=== PATIENT | male | born 1945 | race Caucasian/White ===

== ENCOUNTER 2016-05-30 09:39 | Outpatient (CLI) | payer MEDICARE, OTHER | END 2016-05-30 09:40 | disposition home or self-care (01) | DX: R07.9 Chest pain, unspecified (principal) ==

== ENCOUNTER 2016-06-16 09:14 | Outpatient (CLI) | payer MEDICARE, OTHER | END 2016-06-16 09:15 | disposition home or self-care (01) | DX: R07.9 Chest pain, unspecified (principal); M47.812 Spondylosis without myelopathy or radiculopathy, cervical region; M47.816 Spondylosis without myelopathy or radiculopathy, lumbar region; M19.012 Primary osteoarthritis, left shoulder | CPT/HCPCS: 78306; A9503 ==

== ENCOUNTER 2016-07-03 16:59 | Outpatient (CLI) | payer MEDICARE, OTHER | END 2016-07-03 17:00 | disposition home or self-care (01) | DX: R07.9 Chest pain, unspecified (principal) ==

== ENCOUNTER 2017-02-06 12:23 | Outpatient (CLI) | payer MEDICARE, OTHER | END 2017-02-06 12:24 | disposition home or self-care (01) | LOC: DI 12:23 | PROVIDERS: ATTEND Internal Medicine Cardiovascular Disease | DX: I50.9 Heart failure, unspecified (principal); I51.7 Cardiomegaly; I34.0 Nonrheumatic mitral (valve) insufficiency | CPT/HCPCS: 93306 ==

== ENCOUNTER 2017-04-07 12:41 | Outpatient (CLI) | payer MEDICARE, OTHER ==
--- NOTE | 2017-04-07 18:26 | Ultrasound Report ---
RENAL ULTRASOUND: 04/07/2017 CLINICAL INDICATION: Acute kidney failure. COMPARISON: 03/19/2015 TECHNIQUE: Real-time scanning was performed with passenger service representative static images obtained. The right kidney measures 11.6 x 4.8 x 4.6 cm. A 1.4 cm cortical cyst is noted arising from the uppe r pole. The left kidney is again atrophic, measuring 7.2 x 4.7 x 4.6 cm. No focal solid renal lesio n, perinephric collection, or hydronephrosis is seen. Prevoid, the bladder measures 7.3 x 7.3 x 6.6 cm, yielding a prevoid volume of 184 mL. Bilateral ure teral jets are visualized. No significant postvoid residual is seen. IMPRESSION: STABLE ATROPHIC LEFT KIDNEY. SMALL RIGHT CORTICAL CYST. NO HYDRONEPHROSIS OR POSTVOID RESIDUAL. JOB #: [id number] EXT JOB #:[id number]
== END 2017-04-07 12:42 | disposition home or self-care (01) ==
LOC: DI 12:41
PROVIDERS: ATTEND Internal Medicine Nephrology
DX: N17.9 Acute kidney failure, unspecified (principal); Q61.01 Congenital single renal cyst
CPT/HCPCS: 76770

== ENCOUNTER 2017-04-23 10:42 | Outpatient (CLI) | payer MEDICARE, OTHER ==
[2017-04-23] MEDS ORDERED: REGADENOSON 0.4 MG/5 ML SYRINGE IVP ONE ×2 (11:02→15:50)
--- NOTE | 2017-04-23 18:34 | CARDIAC PROCEDURE NOTE ---
DATE OF SERVICE: 04/23/2017 PRIMARY CARE PHYSICIAN: Dr. Hammer. REFRACTORY MIXER: Alma Becker MD PROCEDURE: Treadmill MPS converted to pharmaceutical stress test. PROCEDURE SYMPTOMS: Heart block. PREVIOUS CARDIAC PROCEDURES: Include ETT and cardiac angiogram. CURRENT SYMPTOMATOLOGY: None. CLINICAL HISTORY: A 72-year-old male with known coronary artery disease. INITIAL RESTING VITAL SIGNS: Blood pressure 114/56, heart rate 78, height 71 inches, weight 230 pounds. PROCEDURE AND FINDINGS: The patient's identity and date verified. Consent signed. The patient initially performed treadmill exercise, using a Mckinley protocol, completing 1 minute and 40 seconds when exercise was terminated due to leg claudication pain and unsteadiness. He was then given Lexiscan 0.4 mg/5 mL over 10 seconds, followed by Cardiolite tracer. He was helped to bed and was breathing heavily. He denied any symptoms related to the Lexiscan injection. He had no chest pain. Maximal blood pressure was 154/70 with a maximal heart rate of 106 beats per minute. The resting ECG demonstrated wandering atrial pacemaker rhythm with a first degree AV block abnormality. Maximum ST segment depression was 0.5 mm to 1.0 mm and upsloping or horizontal. There was a rare PA -C, occasional unifocal PVCs, and several sinus pauses. The longest sinus pause was 1.48 seconds. FINAL IMPRESSION: 1. Nondiagnostic stress electrocardiogram for ischemia by electrocardiographic criteria. 2. Negative stress test clinically for angina. 3. WAP rhythm with sinus pauses, to a maximum of 1.48 seconds. 4. Await myocardial perfusion scan results. JOB #: [id number] EXT JOB #:[id number] MTDD
[2017-04-23 20:36] VITALS: BP 112/82
--- NOTE | 2017-04-24 09:27 | Nuclear Medicine Report ---
EXAM: SINGLE-ISOTOPE PHARMACOLOGICAL STRESS TEST WITH LEXISCAN. SINGLE-ISOTOPE AND SAME-DAY REST/STRESS SUNSHINE CARDIAL PERFUSION SCANS WITH TOMOGRAPHIC IMAGING, QUANTITATIVE ANALYSIS, WALL MOTION ANALYSIS AND ABBY CULATION OF EJECTION FRACTION. EXAM DATE: 04/23/2017 CLINICAL HISTORY: Heart block COMPARISON: None. TECHNIQUE: Patient was unable to safely complete treadmill stress test and exam was therefore converted to pharm acologic stress. Following the intravenous administration of 10.2 mCi of Tc-99m sestamibi, a rest myocardial perfusion scan was done with tomography. Motion correction was applied when appropriate. After a delay of several hours on the same day, a pharmacological stress was performed with the infus ion of 0.4 mg of Lexiscan. According to protocol, 43.1 mCi of Tc-99m sestamibi was injected for stres s myocardial perfusion scan. Stress myocardial perfusion was done with tomography without attenuation correction. Motion correction was applied when appropriate. Gated tomographic images were obtained for wall motion analysis and computation of left ventricular ejection fraction. FINDINGS: Perfusion images: Left ventricular chamber size is normal at rest and unchanged at stress. There is a large size severe perfusion deficit involving the entire inferior and inferolateral wall e xtending to the apex. No convincing reversible perfusion deficits. Gated images: There is lateral, inferior wall, and apical hypokinesis. The left ventricular ejection fraction is estimated at 33% (normal > 50%). IMPRESSION: 1. Large, severe fixed perfusion inferior/inferolateral wall perfusion deficit, compatible with infar ct. 2. No convincing reversible perfusion deficits to indicate stress-induced ischemia. 3. Left ventricular ejection fraction of 33% (normal > 50%). [facility] Referring Provider Line: [phone] SITE ID: [id number]
== END 2017-04-23 10:43 | disposition home or self-care (01) ==
LOC: DI 10:42
PROVIDERS: ATTEND Internal Medicine Cardiovascular Disease
DX: I45.9 Conduction disorder, unspecified (principal); I25.10 Atherosclerotic heart disease of native coronary artery without angina pectoris
CPT/HCPCS: 78452; 93017; A9500; J2785

== ENCOUNTER 2017-07-03 11:59 | Outpatient (CLI) | payer MEDICARE, OTHER ==
[2017-07-03 12:31] LABS: CALCIUM 9.3 mg/dL (8.5-10.3)
== END 2017-07-03 12:00 | disposition home or self-care (01) ==
LOC: LAB 11:59
PROVIDERS: ATTEND Internal Medicine Nephrology
DX: N05.9 Unspecified nephritic syndrome with unspecified morphologic changes (principal); I50.32 Chronic diastolic (congestive) heart failure
CPT/HCPCS: 36415; 80048; 83880

== ENCOUNTER 2017-07-13 09:08 | Outpatient (CLI) | payer MEDICARE, OTHER ==
[2017-07-13 09:57] LABS: ALBUMIN 3.6 g/dL (3.2-5.5); ALBUMIN/GLOBULIN RATIO 1.1 (1.0-2.2); ALKALINE PHOSPHATASE 83 IU/L (42-121); ALT ALANINE AMINOTRANSFERASE 11 IU/L (10-60); AST ASPARTATE AMINOTRANSFERASE 14 IU/L (10-42); BILIRUBIN,TOTAL 0.5 mg/dL (0.2-1.0); BUN - BLOOD UREA NITROGEN 34 mg/dL (6-20); CALCIUM 9.2 mg/dL (8.5-10.3); CARBON DIOXIDE - CO2 23 mmol/L (21-32); CHLORIDE 106 mmol/L (101-111); CHOL/HDL RATIO 3.6 (<5.0); CHOLESTEROL 111 mg/dL; CREATININE 2.9 mg/dL (0.6-1.2); GFR - MDRD 22 (>89); GLUCOSE 99 mg/dL (70-100); HDL CHOLESTEROL 31 mg/dL; LDL CHOLESTEROL,CALCULATED 59 mg/dL; LDL/HDL RATIO 1.9 (<3.6); SODIUM 138 mmol/L (135-145); VLDL CHOLESTEROL 21 mg/dL
== END 2017-07-13 09:09 | disposition home or self-care (01) ==
LOC: LAB 09:08
PROVIDERS: ATTEND Internal Medicine Cardiovascular Disease
DX: Z79.899 Other long term (current) drug therapy (principal)
CPT/HCPCS: 36415; 80053; 80061; 83721

== ENCOUNTER 2017-09-17 12:45 | Outpatient (CLI) | payer MEDICARE, OTHER ==
[2017-09-17 13:13] LABS: HGB - HEMOGLOBIN 9.3 g/dL (14.0-18.0); MEAN CORPUSCULAR HEMOGLOBIN 32.9 pg (27.0-31.0); MEAN CORPUSCULAR HGB CONC 33.3 g/dL (32.0-36.0); MEAN CORPUSCULAR VOLUME 98.7 fL (80.0-94.0); MEAN PLATELET VOLUME 7.6 fL (7.4-11.4); RED BLOOD COUNT 2.83 10^6/uL (4.70-6.10); WHITE BLOOD COUNT 9.3 x10^3/uL (4.8-10.8)
[2017-09-17 13:32] LABS: CALCIUM 8.9 mg/dL (8.5-10.3); CREATININE 5.5 mg/dL (0.6-1.2); PHOSPHORUS 5.8 mg/dL (2.5-4.6)
== END 2017-09-17 12:46 | disposition home or self-care (01) ==
LOC: LAB 12:45
PROVIDERS: ATTEND Internal Medicine Nephrology
DX: N05.9 Unspecified nephritic syndrome with unspecified morphologic changes (principal); D70.9 Neutropenia, unspecified; D63.1 Anemia in chronic kidney disease; E83.30 Disorder of phosphorus metabolism, unspecified; N25.81 Secondary hyperparathyroidism of renal origin
CPT/HCPCS: 36415; 80048; 83970; 84100

== ENCOUNTER 2017-11-24 16:52 | Outpatient (CLI) | payer MEDICARE, OTHER ==
--- NOTE | 2017-11-25 09:08 | XRAY Report ---
Procedure Date: 11/24/2017 Accession Number: [id number] / [id number] Procedure: XR - Chest 2 View X-Ray CPT Code: 99180 FULL RESULT: EXAM: Chest 2 View X-Ray DATE: 11/24/2017 5:03 PM CLINICAL HISTORY: CP COMPARISON: 05/30/2016 TECHNIQUE: 2 views. FINDINGS: Lungs/Pleura: No focal opacities evident. No pneumothorax or pleural effusion. Normal volumes. Mediastinum: Heart and mediastinal contours are unremarkable. Other: Right jugular dialysis catheter terminates in the superior vena cava. IMPRESSION: Normal 2-view chest radiography. [facility]
== END 2017-11-24 16:53 | disposition home or self-care (01) ==
LOC: DI 16:52
PROVIDERS: ATTEND Internal Medicine
DX: R07.9 Chest pain, unspecified (principal)
CPT/HCPCS: 71046

== ENCOUNTER 2018-02-12 08:00 | Outpatient (CLI) | payer MEDICARE, OTHER | END 2018-02-12 08:01 | disposition home or self-care (01) | LOC: RT 08:00 | PROVIDERS: ATTEND Internal Medicine Cardiovascular Disease | DX: I44.1 Atrioventricular block, second degree (principal) | CPT/HCPCS: 93005 ==

== ENCOUNTER 2018-04-19 07:36 | Outpatient (CLI) | payer MEDICARE, OTHER ==
[2018-04-19 08:10] LABS: INR 1.1 (0.8-1.2); PT - PROTHROMBIN TIME 12.2 secs (9.9-12.6)
== END 2018-04-19 07:37 | disposition home or self-care (01) ==
LOC: LAB 07:36
PROVIDERS: ATTEND Specialist
DX: I48.91 Unspecified atrial fibrillation (principal)
CPT/HCPCS: 36415; 85610

== ENCOUNTER 2018-04-23 07:21 | Outpatient (CLI) | payer MEDICARE, OTHER | END 2018-04-23 07:22 | disposition home or self-care (01) | LOC: LAB 07:21 | PROVIDERS: ATTEND Specialist | DX: I48.91 Unspecified atrial fibrillation (principal) | CPT/HCPCS: 85610 ==

== ENCOUNTER 2018-04-26 06:51 | Outpatient (CLI) | payer MEDICARE, OTHER | END 2018-04-26 06:52 | disposition home or self-care (01) | LOC: LAB 06:51 | PROVIDERS: ATTEND Specialist | DX: I48.91 Unspecified atrial fibrillation (principal) | CPT/HCPCS: 85610 ==

== ENCOUNTER 2018-04-30 06:44 | Outpatient (CLI) | payer MEDICARE, OTHER | END 2018-04-30 06:45 | disposition home or self-care (01) | LOC: LAB 06:44 | PROVIDERS: ATTEND Specialist | DX: I48.91 Unspecified atrial fibrillation (principal) | CPT/HCPCS: 85610 ==

== ENCOUNTER 2018-05-03 06:51 | Outpatient (CLI) | payer MEDICARE, OTHER | END 2018-05-03 06:52 | disposition home or self-care (01) | LOC: LAB 06:51 | PROVIDERS: ATTEND Specialist | DX: I48.91 Unspecified atrial fibrillation (principal) | CPT/HCPCS: 85610 ==

== ENCOUNTER 2018-05-05 06:52 | Outpatient (CLI) | payer MEDICARE, OTHER | END 2018-05-05 06:53 | disposition home or self-care (01) | LOC: LAB 06:52 | PROVIDERS: ATTEND Specialist | DX: I48.91 Unspecified atrial fibrillation (principal) | CPT/HCPCS: 85610 ==

== ENCOUNTER 2018-05-06 08:12 | Outpatient (CLI) | payer MEDICARE, OTHER | END 2018-05-06 08:13 | disposition short-term general hospital (02) | LOC: EMS 08:12 | PROVIDERS: ATTEND Surgery | DX: R10.11 Right upper quadrant pain (principal); R06.02 Shortness of breath | CPT/HCPCS: A0425; A0427 ==

== ENCOUNTER 2018-05-11 07:04 | Outpatient (CLI) | payer MEDICARE, OTHER | END 2018-05-11 07:05 | disposition home or self-care (01) | LOC: LAB 07:04 | PROVIDERS: ATTEND Specialist | DX: I48.91 Unspecified atrial fibrillation (principal) | CPT/HCPCS: 85610 ==

== ENCOUNTER 2018-05-12 07:14 | Outpatient (CLI) | payer MEDICARE, OTHER | END 2018-05-12 07:15 | disposition home or self-care (01) | LOC: LAB 07:14 | PROVIDERS: ATTEND Specialist | DX: I48.91 Unspecified atrial fibrillation (principal) | CPT/HCPCS: 85610 ==

== ENCOUNTER 2018-05-21 06:42 | Outpatient (CLI) | payer MEDICARE, OTHER | END 2018-05-21 06:43 | disposition home or self-care (01) | LOC: LAB 06:42 | PROVIDERS: ATTEND Specialist | DX: I48.91 Unspecified atrial fibrillation (principal) | CPT/HCPCS: 85610 ==

== ENCOUNTER 2018-05-24 07:13 | Outpatient (CLI) | payer MEDICARE, OTHER | END 2018-05-24 07:14 | disposition home or self-care (01) | LOC: LAB 07:13 | PROVIDERS: ATTEND Specialist | DX: I48.91 Unspecified atrial fibrillation (principal) | CPT/HCPCS: 85610 ==

== ENCOUNTER 2018-05-28 07:11 | Outpatient (CLI) | payer MEDICARE, OTHER ==
[2018-05-28 07:50] LABS: BASOPHILS # (AUTO) 0.1 10^3/uL (0.0-0.1); BASOPHILS % (AUTO) 0.8 %; EOSINOPHILS # (AUTO) 0.2 10^3/uL (0.0-0.7); EOSINOPHILS % (AUTO) 2.1 %; LYMPHOCYTES % (AUTO) 20.1 %; MEAN CORPUSCULAR HEMOGLOBIN 35.4 pg (27.0-31.0); MEAN CORPUSCULAR HGB CONC 34.9 g/dL (32.0-36.0); MEAN CORPUSCULAR VOLUME 101.5 fL (80.0-94.0); MEAN PLATELET VOLUME 7.4 fL (7.4-11.4); MONOCYTES # (AUTO) 0.8 10^3/uL (0.0-1.0); MONOCYTES % (AUTO) 8.2 %; NEUTROPHILS # (AUTO) 6.7 10^3/uL (1.5-6.6); NEUTROPHILS % (AUTO) 68.8 %; PLT - PLATELET COUNT 220 10^3/uL (130-450); RED CELL DISTRIBUTION WIDTH 13.6 % (12.0-15.0); WHITE BLOOD COUNT 9.7 x10^3/uL (4.8-10.8)
[2018-05-28 08:04] LABS: CALCIUM 9.4 mg/dL (8.5-10.3); CREATININE 4.8 mg/dL (0.6-1.2); MAGNESIUM 2.5 mg/dL (1.7-2.8)
== END 2018-05-28 07:12 | disposition home or self-care (01) ==
LOC: LAB 07:11
PROVIDERS: ATTEND Specialist
DX: R25.2 Cramp and spasm (principal); I48.91 Unspecified atrial fibrillation
CPT/HCPCS: 36415; 80048; 83735; 84443; 85025; 85610

== ENCOUNTER 2018-05-31 07:09 | Outpatient (CLI) | payer MEDICARE, OTHER | END 2018-05-31 07:10 | disposition home or self-care (01) | LOC: LAB 07:09 | PROVIDERS: ATTEND Specialist | DX: I48.91 Unspecified atrial fibrillation (principal) | CPT/HCPCS: 85610 ==

== ENCOUNTER 2018-06-04 07:00 | Outpatient (CLI) | payer MEDICARE, OTHER | END 2018-06-04 07:01 | disposition home or self-care (01) | LOC: LAB 07:00 | PROVIDERS: ATTEND Specialist | DX: I48.91 Unspecified atrial fibrillation (principal) | CPT/HCPCS: 85610 ==

== ENCOUNTER 2018-06-11 06:55 | Outpatient (CLI) | payer MEDICARE, OTHER | END 2018-06-11 06:56 | disposition home or self-care (01) | LOC: LAB 06:55 | PROVIDERS: ATTEND Specialist | DX: I48.91 Unspecified atrial fibrillation (principal) | CPT/HCPCS: 85610 ==

== ENCOUNTER 2018-06-22 07:20 | Outpatient (CLI) | payer MEDICARE, OTHER | END 2018-06-22 07:21 | disposition home or self-care (01) | LOC: LAB 07:20 | PROVIDERS: ATTEND Specialist | DX: I48.91 Unspecified atrial fibrillation (principal) | CPT/HCPCS: 36415; 85610 ==

== ENCOUNTER 2018-07-01 13:04 | Outpatient (CLI) | payer MEDICARE, OTHER ==
[2018-07-01 13:27] LABS: BASOPHILS # (AUTO) 0.1 10^3/uL (0.0-0.1); BASOPHILS % (AUTO) 1.1 %; EOSINOPHILS # (AUTO) 0.2 10^3/uL (0.0-0.7); EOSINOPHILS % (AUTO) 1.9 %; HGB - HEMOGLOBIN 12.2 g/dL (14.0-18.0); LYMPHOCYTES # (AUTO) 1.9 10^3/uL (1.5-3.5); LYMPHOCYTES % (AUTO) 16.4 %; MEAN CORPUSCULAR HEMOGLOBIN 34.3 pg (27.0-31.0); MEAN CORPUSCULAR HGB CONC 34.4 g/dL (32.0-36.0); MEAN CORPUSCULAR VOLUME 99.7 fL (80.0-94.0); MEAN PLATELET VOLUME 7.6 fL (7.4-11.4); MONOCYTES # (AUTO) 0.8 10^3/uL (0.0-1.0); MONOCYTES % (AUTO) 7.1 %; NEUTROPHILS # (AUTO) 8.4 10^3/uL (1.5-6.6); NEUTROPHILS % (AUTO) 73.5 %; PLT - PLATELET COUNT 207 10^3/uL (130-450); RED BLOOD COUNT 3.56 10^6/uL (4.70-6.10); RED CELL DISTRIBUTION WIDTH 13.4 % (12.0-15.0); WHITE BLOOD COUNT 11.5 x10^3/uL (4.8-10.8)
[2018-07-01 13:38] LABS: INR 1.8 (0.8-1.2); PT - PROTHROMBIN TIME 20.3 secs (9.9-12.6)
[2018-07-01 13:43] LABS: CALCIUM 9.4 mg/dL (8.5-10.3); CREATININE 4.9 mg/dL (0.6-1.2)
== END 2018-07-01 13:05 | disposition home or self-care (01) ==
LOC: LAB 13:04
PROVIDERS: ATTEND Specialist
DX: I48.91 Unspecified atrial fibrillation (principal)
CPT/HCPCS: 36415; 80048; 85025; 85610; 86850; 86900; 86901

== ENCOUNTER 2018-07-08 07:31 | Outpatient (CLI) | payer MEDICARE, OTHER | END 2018-07-08 07:32 | disposition home or self-care (01) | LOC: LAB 07:31 | PROVIDERS: ATTEND Specialist | DX: I48.91 Unspecified atrial fibrillation (principal) | CPT/HCPCS: 85610 ==

== ENCOUNTER 2018-07-10 08:00 | Outpatient (CLI) | payer MEDICARE, OTHER | END 2018-07-10 08:01 | disposition home or self-care (01) | LOC: LAB 08:00 | PROVIDERS: ATTEND Specialist | DX: I48.91 Unspecified atrial fibrillation (principal) | CPT/HCPCS: 85610 ==

== ENCOUNTER 2018-07-20 07:13 | Outpatient (CLI) | payer MEDICARE, OTHER | END 2018-07-20 07:14 | disposition home or self-care (01) | LOC: LAB 07:13 | PROVIDERS: ATTEND Specialist | DX: I48.91 Unspecified atrial fibrillation (principal) | CPT/HCPCS: 85610 ==

== ENCOUNTER 2018-07-27 07:00 | Outpatient (CLI) | payer MEDICARE, OTHER | END 2018-07-27 07:01 | disposition home or self-care (01) | LOC: LAB 07:00 | PROVIDERS: ATTEND Specialist | DX: I48.91 Unspecified atrial fibrillation (principal) | CPT/HCPCS: 85610 ==

== ENCOUNTER 2018-08-12 07:17 | Outpatient (CLI) | payer MEDICARE, OTHER | END 2018-08-12 07:18 | disposition home or self-care (01) | LOC: LAB 07:17 | PROVIDERS: ATTEND Specialist | DX: I48.91 Unspecified atrial fibrillation (principal) | CPT/HCPCS: 85610 ==

== ENCOUNTER 2018-10-13 12:20 | Emergency (ER) | payer MEDICARE, OTHER ==
[2018-10-13 12:54] LABS: BASOPHILS # (AUTO) 0.1 10^3/uL (0.0-0.1); BASOPHILS % (AUTO) 0.9 %; EOSINOPHILS # (AUTO) 0.1 10^3/uL (0.0-0.7); HGB - HEMOGLOBIN 11.4 g/dL (14.0-18.0); LYMPHOCYTES % (AUTO) 10.8 %; MEAN CORPUSCULAR HEMOGLOBIN 33.8 pg (27.0-31.0); MEAN CORPUSCULAR HGB CONC 33.7 g/dL (32.0-36.0); MEAN CORPUSCULAR VOLUME 100.5 fL (80.0-94.0); MEAN PLATELET VOLUME 8.7 fL (7.4-11.4); MONOCYTES # (AUTO) 0.6 10^3/uL (0.0-1.0); MONOCYTES % (AUTO) 6.2 %; NEUTROPHILS # (AUTO) 7.2 10^3/uL (1.5-6.6); NEUTROPHILS % (AUTO) 81.1 %; PLT - PLATELET COUNT 125 10^3/uL (130-450); RED BLOOD COUNT 3.36 10^6/uL (4.70-6.10); RED CELL DISTRIBUTION WIDTH 13.8 % (12.0-15.0); WHITE BLOOD COUNT 8.9 x10^3/uL (4.8-10.8)
[2018-10-13 13:08] LABS: ALBUMIN 4.2 g/dL (3.2-5.5); ALBUMIN/GLOBULIN RATIO 1.2 (1.0-2.2); ALKALINE PHOSPHATASE 87 IU/L (42-121); ALT ALANINE AMINOTRANSFERASE < 10 IU/L (10-60); AST ASPARTATE AMINOTRANSFERASE 20 IU/L (10-42); BILIRUBIN,TOTAL 0.8 mg/dL (0.2-1.0); BUN - BLOOD UREA NITROGEN 11 mg/dL (6-20); CALCIUM 9.1 mg/dL (8.5-10.3); CARBON DIOXIDE - CO2 28 mmol/L (21-32); CHLORIDE 102 mmol/L (101-111); CREATININE 2.8 mg/dL (0.6-1.2); GFR - MDRD 22 (>89); GLUCOSE 123 mg/dL (70-100); LIPASE 25 U/L (22-51); SODIUM 140 mmol/L (135-145); TOTAL PROTEIN 7.7 g/dL (6.7-8.2)
--- NOTE | 2018-10-13 13:28 | ED Physician Documentation ---
PD HPI URI - Stated complaint Stated Complaint: SOA - Chief complaint Chief Complaint: Resp - History obtained from History obtained from: Patient - History of Present Illness Timing - onset: How many days ago (few) Timing duration: Days (4) Timing details: Gradual onset, Still present Associated symptoms: Nasal congestion, Productive cough, Dyspnea (using his home MDIs more with temporary relief.). No: Fever, Chills, Swollen nodes, Hemoptysis, Chest pain Contributing factors: Immunocompromised (renal fialure and on dialysis, had dialysis this morning without problems. Nurses there encouraged him to get checked with PMD or ER.), COPD / asthma. No: Sick contact Improves by: MDI/nebulizer (using his MDIs more at home) Worsened by: Activity Similar symptoms before: Diagnosis (COPD exac with bronchitis or infections in the past) Recently seen: Clinic (had dialysis today without problems and says he was down to his dry weight.) Review of Systems Constitutional: reports: Myalgias, Fatigue. denies: Fever Nose: reports: Congestion Cardiac: denies: Chest pain / pressure, Palpitations Respiratory: reports: Dyspnea, Cough, Wheezing GI: denies: Nausea, Vomiting, Diarrhea, Bloody / black stool Skin: denies: Rash, Lesions Neurologic: reports: Generalized weakness. denies: Focal weakness, Numbness, Altered mental status PD PAST MEDICAL HISTORY - Past Medical History Cardiovascular: Congestive heart failure, Hypertension, High cholesterol, Coronary artery disease, [place] Respiratory: COPD, Shortness of breath Endocrine/Autoimmune: Type 2 diabetes GI: GERD, Ulcers : Benign prostate hypertrophy, Renal insuffiency, Other HEENT: None Psych: Depression Musculoskeletal: Osteoarthritis, Rheumatoid arthritis Derm: Other drug resistant infections - Past Surgical History General: EGD, Cholecystectomy, Bowel surgery, Colonoscopy Derm: Skin cancer surgery - Present Medications Home Medications: Ambulatory Orders Medication Instructions Recorded Confirmed Carvedilol [Coreg] 3.125 mg PO BID 10/25/12 08/21/16 Cholecalciferol (Vitamin D3) 1,000 unit PO DAILY 10/25/12 08/21/16 [Vitamin D] Clopidogrel [Plavix] 75 mg PO DAILY 10/25/12 08/21/16 Cyanocobalamin/Folic Acid [Vitamin 1 each PO DAILY 10/25/12 08/21/16 J52-Coodx Acid Tablet] Cyclobenzaprine [Flexeril] 5 mg PO TID PRN 10/25/12 08/21/16 Docusate Sodium [Stool Softener] 100 mg PO BID 10/25/12 08/21/16 Ferrous Sulfate 324 mg PO BID 10/25/12 08/21/16 Furosemide [Lasix] 40 mg PO BID 10/25/12 10/13/18 Isosorbide Dinitrate 20 mg PO TID 10/25/12 08/21/16 Lansoprazole 30 mg PO DAILY 10/25/12 08/21/16 Potassium Chloride 10 meq PO DAILY 10/25/12 08/21/16 Pravastatin Sodium [Pravachol] 20 mg PO DAILY 10/25/12 08/21/16 Vitamin [Trinatal Rx 1] 1 each PO DAILY 10/25/12 08/21/16 Sertraline HCl [Zoloft] 50 mg PO DAILY 10/25/12 08/21/16 hydrALAZINE [Apresoline] 25 mg PO TID 10/25/12 08/21/16 oxyCODONE [Roxicodone] 5 - 10 mg PO Q4-6H 10/25/12 08/21/16 Nitroglycerin [Nitrostat] 1 - 2 tab PO ONCE PRN MDD 2 tabs 08/21/16 08/21/16 Aspirin 81 mg PO DAILY 10/13/18 10/13/18 Benzonatate [Tessalon Perle] 100 mg PO TID PRN #30 capsule 10/13/18 Doxycycline Hyclate 100 mg PO BID #20 capsule 10/13/18 dexAMETHasone [Decadron] 4 mg PO DAILY #5 tablet 10/13/18 - Allergies Allergies/Adverse Reactions: Allergies Allergy/AdvReac Type Severity Reaction Status Date / Time LESLIE Inhibitors Allergy Unknown UNKNOWN Verified 10/13/18 12:33 doxycycline Allergy Unknown UNKNOWN Verified 10/13/18 12:33 levofloxacin [From Levaquin] Allergy Unknown UNKNOWN Verified 10/13/18 12:33 meloxicam Allergy Unknown UNKNOWN Verified 10/13/18 12:33 Sulfa (Sulfonamide Allergy Unknown UNKNOWN Verified 10/13/18 12:33 Antibiotics) - Social History Does the pt smoke?: Yes Smoking Status: Current every day smoker Does the pt drink ETOH?: No Does the pt have substance abuse?: No - Immunizations Immunizations are current?: Yes PD ED PE NORMAL - Vitals Vital signs reviewed: Yes - General General: Alert and oriented X 3, No acute distress (having mild prolonged expirations and some audible wheezes. No accessory muscle use. ), Well developed/nourished - HEENT HEENT: Ears normal, Moist mucous membranes, Pharynx benign - Neck Neck: Supple, no meningeal sign, No adenopathy, No JVD - Cardiac Cardiac: RRR, No murmur - Respiratory Respiratory: No respiratory distress. No: Clear bilaterally (wheezing and some central congested sounds with cough. ) - Abdomen Abdomen: Soft, Non tender - Derm Derm: Normal color, Warm and dry - Extremities Extremities: No tenderness to palpate, Normal ROM s pain, No calf tenderness / cord, Other (1+ edema in both legs) - Neuro Neuro: Alert and oriented X 3, No motor deficit, Normal speech Results - Vitals Vitals: Vital Signs - 24 hr 10/13/18 10/13/18 10/13/18 12:30 12:41 14:19 Temperature 35.9 C L Heart Rate 70 57 L 59 L Respiratory 24 22 20 Rate Blood Pressure 181/69 H 181/69 H 185/77 H O2 Saturation 97 94 94 10/13/18 10/13/18 14:49 15:13 Temperature Heart Rate 57 L 63 Respiratory 18 18 Rate Blood Pressure 156/110 H O2 Saturation 98 Oxygen O2 Source Room air Oxygen Flow Rate 3 - EKG (time done) 12:25 Rate: Rate (enter#) (57) Rhythm: Sinus bradycardia [place]: Normal Intervals: Normal [place], Prolonged QT (borderline) QRS: Normal Ischemia: Normal ST segments. No: ST elevation c/w ischemia, ST depression - Labs Labs: Laboratory Tests 10/13/18 10/13/18 10/13/18 12:45 12:45 12:45 WBC 8.9 RBC 3.36 L Hgb 11.4 L Hct 33.7 L MCV 100.5 H MCH 33.8 H MCHC 33.7 RDW 13.8 Plt Count 125 L MPV 8.7 Neut # (Auto) 7.2 H Lymph # (Auto) 1.0 L [place] # (Auto) 0.6 Eos # (Auto) 0.1 Baso # (Auto) 0.1 Absolute Nucleated RBC 0.00 Nucleated RBC % 0.0 Sodium 140 Potassium 4.1 Chloride 102 Carbon Dioxide 28 Anion Gap 10.0 BUN 11 Creatinine 2.8 H Estimated GFR (MDRD) 22 L Glucose 123 H Calcium 9.1 Total Bilirubin 0.8 AST 20 ALT < 10 L Alkaline Phosphatase 87 Troponin I 0.05 Total Protein 7.7 Albumin 4.2 Globulin 3.5 Albumin/Globulin Ratio 1.2 Lipase 25 - Rads (name of study) chest xray Radiology: Prelim report reviewed (no infiltrates. Some vascular congestion c/w edema.), See rad report PD MEDICAL DECISION MAKING - ED course Complexity details: reviewed results, re-evaluated patient (feels improved breathing with nebulizer (has MDIs at home). Will treat as infectious bronchitis. No infiltrates on CXR. Rx Doxycycline (borderline QT widening, so no Zpack). ), considered differential (sounds like exac COPD with bronchitis. No apparent pneumonia. ), d/w patient Departure - Departure Disposition: Home, Self Care Clinical Impression: Bronchitis Exacerbation of asthma Qualifiers: Asthma severity: mild Asthma persistence: intermittent Qualified Code(s): J45.21 - Mild intermittent asthma with (acute) exacerbation Chronic renal failure Qualifiers: Chronic kidney disease stage: unspecified stage Qualified Code(s): N18.9 - Chronic kidney disease, unspecified Condition: Stable Record reviewed to determine appropriate education?: Yes Instructions: ED Upper Resp Infec Abx Tx Follow-Up: Chelly Hammer MD [Primary Care Provider] - Prescriptions: Benzonatate [Tessalon Perle] 100 mg PO TID PRN #30 capsule PRN Reason: Cough dexAMETHasone [Decadron] 4 mg PO DAILY #5 tablet Doxycycline Hyclate 100 mg PO BID #20 capsule Comments: Regular diet. Dialysis as usual. Use your albuterol inhaler at home 2 to 3 puffs 4 times a day and extra times as needed. Doxycycline antibiotic as directed. Decadron for inflammation of the airways daily as directed. Add Tessalon if needed for cough. Recheck if not improving in the next couple of days and return sooner if worse. Discharge Date/Time: 10/13/18 15:43
[2018-10-13] MEDS ORDERED: BENZONATATE 100 MG CAPSULE PO STA (14:01)
[2018-10-13] MEDS ORDERED: IPRATROPIUM/ALBUTEROL 3 ML NEB INH STA (14:01)
[2018-10-13] MEDS ORDERED: DEXAMETHASONE 10 MG/ML VIAL IVP STA (14:01)
[2018-10-13] MEDS ORDERED: cefTRIAXone 1 GM VIAL IVP STA (14:01)
[2018-10-13] MEDS ORDERED: DOXYCYCLINE 100 MG TABLET PO STA (14:04)
--- NOTE | 2018-10-13 14:05 | XRAY Report ---
Reason: SOA/ CP Procedure Date: 10/13/2018 Accession Number: [id number] / [id number] Procedure: XR - Chest 2 View X-Ray CPT Code: 32713 FULL RESULT: EXAM: CHEST RADIOGRAPHY EXAM DATE: 10/13/2018 01:49 PM. CLINICAL HISTORY: SOA/ CP. COMPARISON: CHEST 2 VIEW 11/24/2017 4:55 PM. TECHNIQUE: 2 views. FINDINGS: Lungs/Pleura: Mildly hyperexpanded. Diffuse increased hazy prominence of lung markings with septal lines. Small bilateral pleural effusions best seen on lateral view. No consolidation or pneumothorax. Mediastinum: Overall heart size within normal limits for PA technique, probably unchanged. Upper lobe vessels not distended. Other: Degenerative changes. IMPRESSION: Increased lung markings and small pleural effusions, most likely fluid overload. [facility]
[2018-10-13 15:18] VITALS: BP 156/110
== END 2018-10-13 15:43 | disposition home or self-care (01) ==
LOC: ED 12:20
DX: J44.0 Chronic obstructive pulmonary disease with (acute) lower respiratory infection (principal); J40 Bronchitis, not specified as acute or chronic; J45.21 Mild intermittent asthma with (acute) exacerbation; I13.0 Hypertensive heart and chronic kidney disease with heart failure and stage 1 through stage 4 chronic kidney disease, or unspecified chronic kidney disease; E11.22 Type 2 diabetes mellitus with diabetic chronic kidney disease; N18.9 Chronic kidney disease, unspecified; I50.9 Heart failure, unspecified; Z99.2 Dependence on renal dialysis; R00.1 Bradycardia, unspecified; F17.200 Nicotine dependence, unspecified, uncomplicated; Z79.02 Long term (current) use of antithrombotics/antiplatelets; Z79.82 Long term (current) use of aspirin
CPT/HCPCS: 36415; 71046; 80053; 83690; 84484; 85025; 93005; 94640; 96374; 99283; 99284; A9270

== ENCOUNTER 2018-12-06 06:47 | Outpatient (CLI) | payer MEDICARE, OTHER | END 2018-12-06 06:48 | disposition short-term general hospital (02) | LOC: EMS 06:47 | PROVIDERS: ATTEND Surgery | DX: R41.82 Altered mental status, unspecified (principal) | CPT/HCPCS: A0425; A0427 ==

== ENCOUNTER 2019-04-26 19:11 | Outpatient (CLI) | payer MEDICARE, OTHER ==
--- NOTE | 2019-04-26 21:46 | Ultrasound Report ---
Reason: RETENTION OF BLADDER Procedure Date: 04/26/2019 Accession Number: [id number] / [id number] Procedure: US - Bladder CPT Code: Addended Final Report FULL RESULT: EXAM: PELVIS ULTRASOUND, LIMITED EXAM DATE: 04/26/2019 08:27 PM. CLINICAL HISTORY: RETENTION OF BLADDER. COMPARISON: None. TECHNIQUE: Real-time scanning was performed with static images obtained. FINDINGS: History of dialysis. Moderate ascites noted. Right-sided pleural effusion noted. Nondistended urinary bladder. Postvoid not obtained, patient unable to void. Prevoid measures 7.9 cc. Both ureteric jets not seen. IMPRESSION: Prevoid urinary bladder measures 7.9 cc, not well distended. Patient unable to void. Moderate ascites and right-sided pleural effusion. [facility] The call report notification system was initiated by Dr. Kat Varela at 09:44 PM on 04/26/2019. ADDENDUM: 04/26/19 21:46 The above call report findings were discussed with Dr Hammer by Dr. Kat Varela at 09:46 PM on 04/26/2019.
== END 2019-04-26 19:12 | disposition home or self-care (01) ==
LOC: DI 19:11
PROVIDERS: ATTEND Internal Medicine
DX: R33.9 Retention of urine, unspecified (principal); R18.8 Other ascites; J90 Pleural effusion, not elsewhere classified
CPT/HCPCS: 76857

== ENCOUNTER 2019-07-25 17:41 | Emergency (ER) | payer MEDICARE, OTHER ==
--- NOTE | 2019-07-25 18:34 | ED Physician Documentation ---
History of Present Illness - Stated complaint Stated Complaint: MALE - Chief complaint Chief Complaint: General - History obtained from History obtained from: Patient (Patient presents to the ED today with a chief complaint of a scrotal swelling occurring for 4 days now he was over at [facility] today for surgery to open up a dialysis shunt on the right arm, which was unsuccessful, and they advised that he should follow-up on the in the ER for the testicular swelling and potential US. The patient is a hemodialysis patient his last dialysis was on Thursday 4 days ago. The patient does note that testicular scrotal swelling has occurred in the past and after dialysis and swelling does go down.He is a colon cancer survivor with a colostomy bag.) Review of Systems Constitutional: denies: Fever, Chills, Fatigue Nose: denies: Rhinorrhea / runny nose Cardiac: reports: Pedal edema. denies: Chest pain / pressure, Palpitations Respiratory: reports: Dyspnea, Wheezing. denies: Cough, Hemoptysis GI: reports: Abdominal Swelling, Other (colostomy bag in place). denies: Abdominal Pain, Nausea, Vomiting : reports: Testicular pain, Other (scrotal swelling) Skin: denies: Rash Musculoskeletal: reports: Extremity swelling Neurologic: reports: Generalized weakness. denies: Focal weakness, Syncope, Seizure, Altered mental status, Headache Psychiatric: reports: Depressed, Other (per pt report given his current health condition) PD PAST MEDICAL HISTORY - Past Medical History Cardiovascular: Congestive heart failure, Hypertension, High cholesterol, Coronary artery disease, [place] Respiratory: COPD, Shortness of breath Endocrine/Autoimmune: Type 2 diabetes GI: GERD, Ulcers, Other (colon cancer) : Benign prostate hypertrophy, Renal insuffiency, Other HEENT: None Psych: Depression Musculoskeletal: Osteoarthritis, Rheumatoid arthritis Derm: Other drug resistant infections - Past Surgical History General: EGD, Cholecystectomy, Bowel surgery, Colonoscopy Derm: Skin cancer surgery - Present Medications Home Medications: Ambulatory Orders Medication Instructions Recorded Confirmed Cyclobenzaprine [Flexeril] 5 mg PO TID PRN 10/25/12 08/21/16 Ferrous Sulfate 324 mg PO BID 10/25/12 08/21/16 Furosemide [Lasix] 40 mg PO BID 10/25/12 10/13/18 Isosorbide Dinitrate 20 mg PO TID 10/25/12 08/21/16 Lansoprazole 30 mg PO DAILY 10/25/12 08/21/16 Pravastatin Sodium [Pravachol] 20 mg PO DAILY 10/25/12 08/21/16 Vitamin [Trinatal Rx 1] 1 each PO DAILY 10/25/12 08/21/16 hydrALAZINE [Apresoline] 25 mg PO TID 10/25/12 08/21/16 oxyCODONE [Roxicodone] 5 - 10 mg PO Q4-6H 10/25/12 08/21/16 Nitroglycerin [Nitrostat] 1 - 2 tab PO ONCE PRN MDD 2 tabs 08/21/16 08/21/16 Aspirin 81 mg PO DAILY 10/13/18 10/13/18 - Allergies Allergies/Adverse Reactions: Allergies Allergy/AdvReac Type Severity Reaction Status Date / Time LESLIE Inhibitors Allergy Unknown UNKNOWN Verified 07/25/19 17:46 doxycycline Allergy Unknown UNKNOWN Verified 07/25/19 17:46 levofloxacin [From Levaquin] Allergy Unknown UNKNOWN Verified 07/25/19 17:46 meloxicam Allergy Unknown UNKNOWN Verified 07/25/19 17:46 Sulfa (Sulfonamide Allergy Unknown UNKNOWN Verified 07/25/19 17:46 Antibiotics) - Living Situation Living Situation: reports: Alone, Other (son lives on same property as the pt, about 60 feet away.) Living Arrangement: reports: At home - Social History Does the pt smoke?: Yes Smoking Status: Current every day smoker Does the pt drink ETOH?: No Does the pt have substance abuse?: No - Immunizations Immunizations are current?: Yes PD ED PE NORMAL - General General: Alert and oriented X 3, No acute distress - HEENT HEENT: Atraumatic, PERRL, EOMI, Ears normal, Moist mucous membranes - Cardiac Cardiac: RRR, No murmur - Respiratory Respiratory: No respiratory distress - Abdomen Abdomen: Non tender PD ED PE EXPANDED - Cardiac Cardiac: Archie, Other (pedal & dorsalis pulses absent 2/2 edema) - Respiratory Respiratory: Wheezing, Rhonchi, Right lower lobe, Left lower lobe - Abdomen Abdomen: Decreased BS, Distended - Male Male : Other (scrotal edema) - Extremities Extremities: Other (shunt noted to the RUE w/ thrill noted.) - Free text exam Free text exam: general anasarc up to pt's nipple line / Results - Vitals Vitals: Vital Signs - 24 hr 07/25/19 07/25/19 07/25/19 17:46 18:03 18:57 Temperature 35.7 C L Heart Rate 54 L 39 L Respiratory 20 16 Rate Blood Pressure 110/60 99/60 O2 Saturation 99 97 07/25/19 20:00 Temperature Heart Rate 34 L Respiratory 16 Rate Blood Pressure 123/86 H O2 Saturation 98 Oxygen O2 Source Nasal cannula Oxygen Flow Rate 2 - Labs Labs: Laboratory Tests 07/25/19 07/25/19 07/25/19 18:50 19:25 19:25 WBC 4.5 L RBC 3.31 L Hgb 10.9 L Hct 35.0 L MCV 105.7 H MCH 32.9 H MCHC 31.1 L RDW 16.5 H Plt Count 53 L MPV 11.5 H Neut # (Auto) Not Reportable Lymph # (Auto) Not Reportable [place] # (Auto) Not Reportable Eos # (Auto) Not Reportable Baso # (Auto) Not Reportable Absolute Nucleated RBC Not Reportable Total Counted 100 Band Neuts % (Manual) 2 Abnorm Lymph % (Manual) 0 Nucleated RBC % Not Reportable Neutrophils # (Manual) 2.7 Lymphocytes # (Manual) 1.2 L Monocytes # (Manual) 0.5 Eosinophils # (Manual) 0.1 Basophils # (Manual) 0.0 Differential Comment MANUAL DIFFERENTIAL Manual Slide Review Indicated WBC Morphology NORMAL APPEARANCE Platelet Estimate DECREASED (<130,000) Platelet Morphology NORMAL APPEARANCE RBC Morph Micro Appear 1+ MACROCYTOSIS PT 14.6 H INR 1.3 H Sodium 135 Potassium 4.4 Chloride 102 Carbon Dioxide 23 Anion Gap 10.0 BUN 34 H Creatinine 6.7 H Estimated GFR (MDRD) 8 L Glucose 162 H Calcium 8.8 Phosphorus 5.6 H Magnesium 2.5 Total Bilirubin 0.6 AST 20 ALT < 10 L Alkaline Phosphatase 80 Total Protein 6.8 Albumin 3.5 Globulin 3.3 Albumin/Globulin Ratio 1.1 Lipase 20 L PD MEDICAL DECISION MAKING - ED course Complexity details: reviewed old records, reviewed results, re-evaluated patient, d/w patient, other (After speaking with Dr. Winn renovation plant supervisor emergency physician he recommended the patient be transferred to [facility] for emergent hemodialysis tonight. Discussed with the patient the plan for transfer and emergent hemodialysis eros and he refused to go to [place]. He states he was there earlier today for his right fistula proceedure. He states that he will be calling the [facility] dialysis center in [place] tomorrow to get him to be dialyzed tomorrow. Normal dialysis schedule days are Thursday.The patients concern bev is that he will get over to [facility] and will get dialyze and then sent home in the morning without any means of returning back home.I discussed with the patient the consequences of not getting hemodialyzed tonight retaining more fluid, having fluid buildup in the lungs having increased difficulty breathing, worsening oxygen saturations, worsening electrolyte imbalance, bradycardia and potentially worst-case cardiac arrest. Patient states and verbalizes understanding of this and states he will take responsibility for this, the patient signed the AMA form. Also didsucssed the findings of the scrotal US of being fluid buildup from his missing dialysis. ) - Consults Consults: Discussed case with (Dr Winn who advised to admit the pt for dialysis tonight at [facility] for emergent hemodialysis. ) Departure - Departure Disposition: Against Medical Advice Clinical Impression: Scrotal edema Condition: Fair Discharge Date/Time: 07/25/19 20:30
[2019-07-25 19:12] LABS: ALBUMIN 3.5 g/dL (3.2-5.5); ALBUMIN/GLOBULIN RATIO 1.1 (1.0-2.2); ALKALINE PHOSPHATASE 80 IU/L (42-121); ALT ALANINE AMINOTRANSFERASE < 10 IU/L (10-60); AST ASPARTATE AMINOTRANSFERASE 20 IU/L (10-42); BILIRUBIN,TOTAL 0.6 mg/dL (0.2-1.0); BUN - BLOOD UREA NITROGEN 34 mg/dL (6-20); CALCIUM 8.8 mg/dL (8.5-10.3); CARBON DIOXIDE - CO2 23 mmol/L (21-32); CHLORIDE 102 mmol/L (101-111); CREATININE 6.7 mg/dL (0.6-1.2); GFR - MDRD 8 (>89); GLUCOSE 162 mg/dL (70-100); LIPASE 20 U/L (22-51); MAGNESIUM 2.5 mg/dL (1.7-2.8); PHOSPHORUS 5.6 mg/dL (2.5-4.6); SODIUM 135 mmol/L (135-145); TOTAL PROTEIN 6.8 g/dL (6.7-8.2)
[2019-07-25 19:36] LABS: BASOPHILS % (AUTO) 0.7 %; EOSINOPHILS % (AUTO) 1.5 %; HGB - HEMOGLOBIN 10.9 g/dL (14.0-18.0); LYMPHOCYTES % (AUTO) 23.2 %; MEAN CORPUSCULAR HEMOGLOBIN 32.9 pg (27.0-31.0); MEAN CORPUSCULAR HGB CONC 31.1 g/dL (32.0-36.0); MEAN CORPUSCULAR VOLUME 105.7 fL (80.0-94.0); MEAN PLATELET VOLUME 11.5 fL (7.4-11.4); MONOCYTES % (AUTO) 10.4 %; PLT - PLATELET COUNT 53 10^3/uL (130-450); RED BLOOD COUNT 3.31 10^6/uL (4.70-6.10); RED CELL DISTRIBUTION WIDTH 16.5 % (12.0-15.0); WHITE BLOOD COUNT 4.5 x10^3/uL (4.8-10.8)
[2019-07-25 19:42] LABS: ABNORMAL LYMPHS % (MANUAL) 0 %
[2019-07-25 19:47] LABS: INR 1.3 (0.8-1.2); PT - PROTHROMBIN TIME 14.6 secs (9.9-12.6)
--- NOTE | 2019-07-25 20:02 | Ultrasound Report ---
Reason: testivle pain Procedure Date: 07/25/2019 Accession Number: [id number] / [id number] Procedure: US - Testicle w/Doppler CPT Code: Final Report FULL RESULT: EXAM: SCROTAL ULTRASOUND EXAM DATE: 07/25/2019 07:43 PM. CLINICAL HISTORY: Scrotal pain and swelling. History of colon cancer. On hemodialysis. COMPARISON: None. TECHNIQUE: Real-time scanning was performed with static images obtained. Color-flow images were utilized. FINDINGS: Quality: Technically difficult study secondary to severe scrotal wall edema/thickening and patient body habitus. Markedly thickened scrotal wall/scrotal wall edema measuring approximate 4.3 cm in thickness. Right: Testis: 2.4 x 2 x 1.9 cm. Normal size and echotexture. No obvious mass or calcification. Venous blood flow documented. Epididymis: 1.2 x 1.2 x 1.1 cm. Not well seen or evaluated. Hydrocele: None. Varicocele: None. Left: Testis: 3 x 1.5 x 2.4 cm. Normal size and echotexture. No obvious mass or calcification. Venous blood flow documented. Epididymis: 1.3 x 0.6 x 1 cm. Not well seen or evaluated. Hydrocele: None. Varicocele: None. IMPRESSION: 1. Marked scrotal wall edema which limits evaluation. 2. The bilateral testicles are grossly unremarkable. Venous flow documented bilaterally. If concern for torsion, consider measuring resistive indices. 3. The epididymis is not well seen or evaluated bilaterally. [facility]
[2019-07-25 20:04] VITALS: BP 123/86
[2019-07-25 20:06] LABS: BAND NEUTROPHILS % (MANUAL) 2 %; EOSINOPHILS # (MANUAL) 0.1 10^3/uL (0-0.7); LYMPHOCYTES # (MANUAL) 1.2 10^3/uL (1.5-3.5); LYMPHOCYTES % (MANUAL) 26 %; MONOCYTES # (MANUAL) 0.5 10^3/uL (0.0-1.0)
[2019-07-25 20:07] LABS: DIFFERENTIAL COMMENT MANUAL DIFFERENTIAL; PLATELET ESTIMATE, MANUAL DECREASED (<130,000) (NORMAL); PLATELET MORPHOLOGY NORMAL APPEARANCE (NORMAL)
== END 2019-07-25 20:30 | disposition left against medical advice (07) ==
LOC: ED 17:41
DX: N50.89 Other specified disorders of the male genital organs (principal); R60.1 Generalized edema; I11.0 Hypertensive heart disease with heart failure; I50.9 Heart failure, unspecified; I48.92 Unspecified atrial flutter; I48.91 Unspecified atrial fibrillation; I44.2 Atrioventricular block, complete; N28.9 Disorder of kidney and ureter, unspecified; Z99.2 Dependence on renal dialysis; Z85.038 Personal history of other malignant neoplasm of large intestine; Z93.3 Colostomy status; E11.9 Type 2 diabetes mellitus without complications; F17.200 Nicotine dependence, unspecified, uncomplicated
CPT/HCPCS: 36415; 76870; 80053; 83690; 83735; 84100; 85025; 85610; 93005; 93975; 99283; 99284

== ENCOUNTER 2019-07-29 19:43 | Emergency (ER) | payer MEDICARE, OTHER ==
--- NOTE | 2019-07-29 20:25 | ED Physician Documentation ---
PD HPI WOUND RECHECK - Stated complaint Stated Complaint: BLEEDING FROM PORT - Chief complaint Chief Complaint: Wound - Histroy obtained from History obtained from: Patient - History of Present Illness Pain level max: 0 Pain level now: 0 Associated symptoms: No: Fever, Redness, Swelling, Pain - Additional information Additional information: 74-year-old male with a dialysis catheter placed in the right upper chest 2 days ago at [facility] in [place]. Had dialysis today. States that tonight it started bleeding from the right chest wall. Nothing makes it better or worse. He is otherwise asymptomatic. No fevers. He is not on blood thinners. Review of Systems Ten Systems: 10 systems reviewed and negative Constitutional: denies: Fever, Chills Throat: denies: Sore throat Respiratory: denies: Cough, Wheezing GI: denies: Vomiting, Diarrhea Skin: denies: Rash Musculoskeletal: denies: Neck pain, Back pain Neurologic: denies: Headache PD PAST MEDICAL HISTORY - Past Medical History Cardiovascular: Congestive heart failure, Hypertension, High cholesterol, Coronary artery disease, [place] Respiratory: COPD, Shortness of breath Endocrine/Autoimmune: Type 2 diabetes GI: GERD, Ulcers, Other (colon cancer) : Benign prostate hypertrophy, Renal insuffiency, Other HEENT: None Psych: Depression Musculoskeletal: Osteoarthritis, Rheumatoid arthritis Derm: Other drug resistant infections - Past Surgical History General: EGD, Cholecystectomy, Bowel surgery, Colonoscopy Derm: Skin cancer surgery - Present Medications Home Medications: Ambulatory Orders Medication Instructions Recorded Confirmed Cyclobenzaprine [Flexeril] 5 mg PO TID PRN 10/25/12 08/21/16 Ferrous Sulfate 324 mg PO BID 10/25/12 08/21/16 Furosemide [Lasix] 40 mg PO BID 10/25/12 10/13/18 Isosorbide Dinitrate 20 mg PO TID 10/25/12 08/21/16 Lansoprazole 30 mg PO DAILY 10/25/12 08/21/16 Pravastatin Sodium [Pravachol] 20 mg PO DAILY 10/25/12 08/21/16 Vitamin [Trinatal Rx 1] 1 each PO DAILY 10/25/12 08/21/16 hydrALAZINE [Apresoline] 25 mg PO TID 10/25/12 08/21/16 oxyCODONE [Roxicodone] 5 - 10 mg PO Q4-6H 10/25/12 08/21/16 Nitroglycerin [Nitrostat] 1 - 2 tab PO ONCE PRN MDD 2 tabs 08/21/16 08/21/16 Aspirin 81 mg PO DAILY 10/13/18 10/13/18 - Allergies Allergies/Adverse Reactions: Allergies Allergy/AdvReac Type Severity Reaction Status Date / Time LESLIE Inhibitors Allergy Unknown UNKNOWN Verified 07/29/19 19:59 doxycycline Allergy Unknown UNKNOWN Verified 07/29/19 19:59 levofloxacin [From Levaquin] Allergy Unknown UNKNOWN Verified 07/29/19 19:59 meloxicam Allergy Unknown UNKNOWN Verified 07/29/19 19:59 Sulfa (Sulfonamide Allergy Unknown UNKNOWN Verified 07/29/19 19:59 Antibiotics) - Social History Does the pt smoke?: Yes Smoking Status: Current every day smoker Does the pt drink ETOH?: No Does the pt have substance abuse?: No - Immunizations Immunizations are current?: Yes PD ED PE NORMAL - Vitals Vital signs reviewed: Yes - General General: Alert and oriented X 3, No acute distress, Well developed/nourished - Neck Neck: Supple, no meningeal sign - Cardiac Cardiac: RRR - Respiratory Respiratory: No respiratory distress, Clear bilaterally - Derm Derm: Warm and dry - Neuro Neuro: Alert and oriented X 3 - Free text exam Free text exam: Chest -Right upper chest port in place. Ecchymosis present. Clotted blood with a small trickle of bleeding present. Results - Vitals Vitals: Vital Signs - 24 hr 07/29/19 19:57 Temperature 36.5 C Heart Rate 51 L Respiratory 19 Rate Blood Pressure 126/86 H O2 Saturation 94 Oxygen O2 Source Room air - Labs Labs: Laboratory Tests 07/29/19 07/29/19 20:20 20:20 WBC 7.6 RBC 3.19 L Hgb 10.7 L Hct 32.8 L MCV 102.8 H MCH 33.5 H MCHC 32.6 RDW 15.8 H Plt Count 57 L MPV 11.0 Neut # (Auto) 5.7 Lymph # (Auto) 1.1 L [place] # (Auto) 0.7 Eos # (Auto) 0.1 Baso # (Auto) 0.0 Absolute Nucleated RBC 0.00 Nucleated RBC % 0.0 Sodium 133 L Potassium 3.6 Chloride 95 L Carbon Dioxide 25 Anion Gap 13.0 BUN 23 H Creatinine 4.8 H Estimated GFR (MDRD) 12 L Glucose 100 Calcium 8.6 PD MEDICAL DECISION MAKING - ED course Complexity details: reviewed results, re-evaluated patient, considered differential, d/w patient ED course: A 2 pound weight was applied to the chest. Bleeding resolved. No further bleeding, checked after 20 minutes. The weight was applied for approximately 90 minutes. New dressing applied. We will have him follow-up with his doctor for further care. Patient and family counseled regarding signs and symptoms for which I believe and urgent re-evaluation would be necessary. Patient with good understanding of and agreement to plan and is comfortable going home at this time This document was made in part using voice recognition software. While efforts are made to proofread this document, sound alike and grammatical errors may occur. Departure - Departure Disposition: 01 Home, Self Care Clinical Impression: Postoperative bleeding from incision Condition: Good Instructions: ED Wound Check Post Op Bleeding Follow-Up: Chelly Hammer MD [Primary Care Provider] - Within 3 Days Comments: Return if you worsen. If the bleeding recurs or becomes more severe, he will likely need to be seen at the emergency deparment at [facility].
[2019-07-29 20:33] LABS: BASOPHILS % (AUTO) 0.4 %; EOSINOPHILS # (AUTO) 0.1 10^3/uL (0.0-0.7); EOSINOPHILS % (AUTO) 0.8 %; HGB - HEMOGLOBIN 10.7 g/dL (14.0-18.0); LYMPHOCYTES # (AUTO) 1.1 10^3/uL (1.5-3.5); MEAN CORPUSCULAR HEMOGLOBIN 33.5 pg (27.0-31.0); MEAN CORPUSCULAR HGB CONC 32.6 g/dL (32.0-36.0); MEAN CORPUSCULAR VOLUME 102.8 fL (80.0-94.0); MONOCYTES # (AUTO) 0.7 10^3/uL (0.0-1.0); MONOCYTES % (AUTO) 9.7 %; NEUTROPHILS # (AUTO) 5.7 10^3/uL (1.5-6.6); NEUTROPHILS % (AUTO) 74.8 %; PLT - PLATELET COUNT 57 10^3/uL (130-450); RED BLOOD COUNT 3.19 10^6/uL (4.70-6.10); RED CELL DISTRIBUTION WIDTH 15.8 % (12.0-15.0); WHITE BLOOD COUNT 7.6 x10^3/uL (4.8-10.8)
[2019-07-29 20:36] LABS: CALCIUM 8.6 mg/dL (8.5-10.3); CREATININE 4.8 mg/dL (0.6-1.2)
[2019-07-29 22:01] VITALS: BP 124/80
== END 2019-07-29 22:00 | disposition home or self-care (01) ==
LOC: ED 19:43
DX: T82.838A Hemorrhage due to vascular prosthetic devices, implants and grafts, initial encounter (principal); Y83.2 Surgical operation with anastomosis, bypass or graft as the cause of abnormal reaction of the patient, or of later complication, without mention of misadventure at the time of the procedure; N28.9 Disorder of kidney and ureter, unspecified; Z99.2 Dependence on renal dialysis; I11.0 Hypertensive heart disease with heart failure; I50.9 Heart failure, unspecified; E11.9 Type 2 diabetes mellitus without complications; Z79.82 Long term (current) use of aspirin; F17.200 Nicotine dependence, unspecified, uncomplicated
CPT/HCPCS: 36415; 80048; 85025; 99283; 99284

== ENCOUNTER 2019-09-13 18:49 | Outpatient (CLI) | payer MEDICARE, OTHER ==
--- NOTE | 2019-09-13 20:04 | Ultrasound Report ---
Reason: RT UE EDEMA Procedure Date: 09/13/2019 Accession Number: [id number] / [id number] Procedure: US - Duplex Ext Veins Right CPT Code: Final Report FULL RESULT: EXAM: RIGHT UPPER EXTREMITY VENOUS ULTRASOUND EXAM DATE: 09/13/2019 07:53 PM. CLINICAL HISTORY: RT UE EDEMA. Dialysis patient. COMPARISON: None. TECHNIQUE: Real-time sonographic vascular imaging was performed by the assistant account executive through the upper extremity utilizing both color-flow and Doppler spectral analysis. Multiple sales representative church furniture static images were saved for review. FINDINGS: Internal Jugular Vein (IJV): Normal. Subclavian Vein (SCV): The visualized portion is normal. Axillary Vein : Normal. Cephalic Vein (superficial vein): Normal. Basilic Vein (superficial vein): Normal. Brachial Vein: Normal. Contralateral Side: Subclavian Vein: Normal. Other: Dressing over the right upper chest may be at a dialysis catheter site, slightly limiting evaluation of portions of the subclavian vein. IMPRESSION: No evidence for deep vein thrombosis in the right upper extremity. [facility] The call report notification system was initiated by Dr. Nimesh Doll at 08:02 PM on 09/13/2019.
== END 2019-09-13 18:50 | disposition home or self-care (01) ==
LOC: DI 18:49
PROVIDERS: ATTEND Internal Medicine
DX: R60.0 Localized edema (principal)

== ENCOUNTER 2019-09-27 12:28 | Outpatient (CLI) | payer MEDICARE, OTHER | END 2019-09-27 12:29 | disposition EMS.NT | LOC: EMS 12:28 | PROVIDERS: ATTEND Surgery | DX: Z03.89 Encounter for observation for other suspected diseases and conditions ruled out (principal) ==

== ENCOUNTER 2019-09-27 15:01 | Outpatient (CLI) | payer MEDICARE, OTHER | END 2019-09-27 15:02 | disposition short-term general hospital (02) | LOC: EMS 15:01 | PROVIDERS: ATTEND Surgery | DX: R53.1 Weakness (principal); R42 Dizziness and giddiness; R03.1 Nonspecific low blood-pressure reading; Z99.2 Dependence on renal dialysis | CPT/HCPCS: A0425; A0429 ==